=== PATIENT | female | born 1960 | race African-American/Black ===

== ENCOUNTER → 2024-11-08 | Day surgery (SDC) | payer OTHER ==
[~2024-11-08] MED LIST: CRESTOR40 MG PO; GLIMEPIRIDE2 MG PO; LIDOCAINE HCL 2% LOCAL INJ 5 ML SDV VIAL INJ ONE; MIDAZOLAM HCL 2 MG/2 ML VIAL ONE; PHENYLEPHRINE HCL 1% 10 MG/ML VIAL ONE; PROPOFOL IV EMULSION 10 MG/ML 20 ML VIAL ONE; VIT D PO
[2024-11-08] MEDS: LACTATED RINGER'S 1,000 ML ONE (08:25)
[2024-11-08 10:40] VITALS: BP 126/79; PULSE 90; RESP 18; TEMP 97.9; O2SAT 98
== END | disposition home or self-care (01) ==
LOC: OR 06:57
PROVIDERS: ATTEND Internal Medicine Gastroenterology
DX: Z12.11 Encounter for screening for malignant neoplasm of colon (principal); D12.2 Benign neoplasm of ascending colon; K57.30 Diverticulosis of large intestine without perforation or abscess without bleeding; K64.8 Other hemorrhoids; E11.9 Type 2 diabetes mellitus without complications; E78.00 Pure hypercholesterolemia, unspecified; Z79.84 Long term (current) use of oral hypoglycemic drugs; E66.01 Morbid (severe) obesity due to excess calories; Z01.810 Encounter for preprocedural cardiovascular examination
CPT/HCPCS: 36415; 45385; 82948; 93005; J2003; J2250; J2371; J2704; J7121; 45378